=== PATIENT | male | born 1990 | race Caucasian/White ===

== ENCOUNTER 2017-07-30 18:49 | Inpatient (IN) | payer OTHER ==
--- NOTE | 2017-07-30 20:22 | PDOC ---
History of Present Illness - General Chief Complaint: Pain Stated Complaint: PAIN Time Seen by Provider: 07/30/17 19:54 History Source: Patient Exam Limitations: No Limitations - History of Present Illness Travel History: No Initial Comments: 07/30/17 20:21 This is a 27yo man without significant past medical history who presents to the emergency department with 1 day of right lower quadrant pain. 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 He immediately got up and started running after a few seconds of running he felt sudden onset pain in his right lower quadrant. The pain caused the patient to stop as physical activity. The pain has gotten slightly worse progressively over the past 24 hours. The patient initially thought this was indigestion and is tried [id number] medications with minimal relief. Patient denies any headaches, fever, chills, chest pain, shortness of breath, nausea, vomiting, diarrhea, hematochezia, or voiding difficulties. Patient states he has not had a bowel movement since yesterday morning and has usual bowel pattern of 2 bowel movements daily. Timing/Duration: reports: getting worse Abdominal Pain Onset Location: reports: RLQ Pain Radiation: reports: no radiation Activities at Onset: reports: exertion Aggravating Factors: improves with: None Alleviating Factors: improves with: None Past History - Past Medical History Allergies/Adverse Reactions: Allergies Allergy/AdvReac Type Severity Reaction Status Date / Time Penicillins Allergy Verified 07/30/17 19:40 Home Medications: Ambulatory Orders NK [No Known Home Medication] 07/30/17 - Suicide/Smoking/Psychosocial Hx Smoking History: Never smoked *Physical Exam - Vital Signs Last Vital Signs Temp Pulse Resp BP Pulse Ox 98.1 F 73 20 102/54 99 07/30/17 19:40 07/30/17 19:40 07/30/17 19:40 07/30/17 19:40 07/30/17 19:40 ED Treatment Course - LABORATORY CBC & Chemistry Diagram: 07/31/17 06:20 08/01/17 05:35 Medical Decision Making - Medical Decision Making 07/30/17 20:21 A/P: This is a 27yo man without significant past medical history who presents to the emergency department with 1 day of right lower quadrant pain. 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 He immediately got up and started running after a few seconds of running he felt sudden onset pain in his right lower quadrant. The pain caused the patient to stop as physical activity. The pain has gotten slightly worse progressively over the past 24 hours. The patient initially thought this was indigestion and is tried [id number] medications with minimal relief. Patient denies any headaches, fever, chills, chest pain, shortness of breath, nausea, vomiting, diarrhea, hematochezia, or voiding difficulties. Patient states he has not had a bowel movement since yesterday morning and has usual bowel pattern of 2 bowel movements daily. Patient is alert and oriented 3 in no apparent distress. Neck nontender and supple. Chest nontender respirations even and unlabored. Lungs clear to auscultation bilaterally. Regular rate and rhythm. S1 and S2 present with no murmurs rub or gallop. Abdomen with normoactive bowel sounds. Soft nondistended tender in the right lower quadrant. No rebound tenderness. Moves all extremities 4 with strength 5 out of 5 in all extremities. Pupils equally round reactive to light and accommodation. Cranial nerves II through XII intact. Zhao with steady gait no ataxia noted. Patient with appropriate mood and affect. Differential diagnoses include appendicitis, muscle strain, renal calculi I will obtain CBC, CMP, coagulation profile, type and screen, urinalysis. I will give patient 1 L of normal saline bolus. Patient currently refusing anything for pain management. I will obtain CT of the abdomen and pelvis with and without oral and IV contrast. 07/30/17 20:58 Patient requested medication for pain. Morphine 4 mg IV push given by me. *DC/Admit/Observation/Transfer Diagnosis at time of Disposition: Acute appendicitis Qualifiers: Acute appendicitis type: with localized peritonitis Qualified Code(s): K35.3 - Acute appendicitis with localized peritonitis - Discharge Dispostion Condition at time of disposition: Stable Admit: Yes
[2017-07-30] MEDS ORDERED: SODIUM CHLORIDE 1,000 ML IV STA (20:38)
[2017-07-30] MEDS ORDERED: morphine CARPU-JECT 4 MG/1 ML DISP.SYRIN IVPUSH ONE (20:38)
[2017-07-30 20:41] LABS: MCH 29.1 pg (25.7-33.7); MCHC 33.8 g/dl (32.0-35.9); MEAN CELL VOLUME 86.3 fl (80-96); MEAN PLT VOLUME 10.5 fl (7.5-11.1); PLATELET COUNT 120 K/MM3 (134-434); RDW 13.6 % (11.9-15.9)
[2017-07-30 20:42] LABS: URINE APPEARANCE CLOUDY; URINE BILIRUBIN NEGATIVE (NEGATIVE); URINE BLOOD NEGATIVE (NEGATIVE); URINE COLOR YELLOW; URINE GLUCOSE (UA) NEGATIVE (NEGATIVE); URINE KETONE NEGATIVE (NEGATIVE); URINE NITRITE NEGATIVE (NEGATIVE); URINE PROTEIN NEGATIVE (NEGATIVE)
[2017-07-30] MEDS ORDERED: morphine CARPU-JECT 10 MG/1 ML DISP.SYRIN ONE (20:51)
[2017-07-30 20:54] LABS: INR 1.03 (0.82-1.09); PROTHROMBIN TIME (PATIENT) 11.6 SEC (9.98-11.88)
[2017-07-30 21:04] LABS: ALBUMIN 3.8 g/dl (3.4-5.0); ANION GAP 5 (8-16); CALCIUM 8.6 mg/dL (8.5-10.1); CO2 31 mmol/L (21-32); CREATININE 1.1 mg/dL (0.7-1.3); GLUCOSE,RANDOM 92 mg/dL (74-106); SGOT/AST 20 U/L (15-37); SGPT/ALT 24 U/L (12-78)
[2017-07-30 21:06] LABS: ALK PHOS 92 U/L (45-117); TOT PROT 7.3 g/dl (6.4-8.2)
[2017-07-30 21:25] LABS: PLATELET COMMENT2 NO CLOTTING DETECTED; PLATELET COMMENT3 FEW GIANT PLTS; PLATELET ESTIMATE SLT DECREASED (NORMAL); TOTAL CELLS COUNTED 100
[2017-07-30 21:26] LABS: REACTIVE LYMPHOCYTES 3 % (0-80); SMUDGE CELLS FEW
--- NOTE | 2017-07-30 22:34 | PDOC ---
*Physical Exam - Vital Signs Last Vital Signs Temp Pulse Resp BP Pulse Ox 98.1 F 73 20 102/54 99 07/30/17 19:40 07/30/17 19:40 07/30/17 19:40 07/30/17 19:40 07/30/17 19:40 - Physical Exam General Appearance: Yes: Nourished, Appropriately Dressed, Moderate Distress ( holding RLQ) Gastrointestinal/Abdominal: positive: Normal Bowel Sounds, Tender (RLQ, (+) rovsing), Flat, Soft, Rebound ((+) RLQ). negative: Distended, Guarding Integumentary: positive: Normal Color, Dry, Warm Neurologic: positive: computer patternmaker II-XII NML intact, Fully Oriented, Alert, Normal Mood/ Affect, Normal Response, Motor Strength 02/04 ED Treatment Course - LABORATORY CBC & Chemistry Diagram: 07/30/17 20:30 07/30/17 20:30 - ADDITIONAL ORDERS Additional order review: Laboratory Results 07/30/17 07/30/17 07/30/17 20:30 20:30 20:30 PT with INR INR Sodium 140 Potassium 3.7 Chloride 104 Carbon Dioxide 31 Anion Gap 5 L BUN 12 Creatinine 1.1 Creat Clearance w eGFR > 60 Random Glucose 92 Calcium 8.6 Total Bilirubin 1.0 AST 20 ALT 24 Alkaline Phosphatase 92 Total Protein 7.3 Albumin 3.8 Urine Color Yellow Urine Appearance Cloudy Urine pH 7.0 Urine Protein Negative Urine Glucose (UA) Negative Urine Ketones Negative Urine Blood Negative Urine Nitrite Negative Urine Bilirubin Negative Urine Urobilinogen 2.0 Blood Type O POSITIVE Antibody Screen Negative 07/30/17 20:30 PT with INR 11.60 INR 1.03 Sodium Potassium Chloride Carbon Dioxide Anion Gap BUN Creatinine Creat Clearance w eGFR Random Glucose Calcium Total Bilirubin AST ALT Alkaline Phosphatase Total Protein Albumin Urine Color Urine Appearance Urine pH Urine Protein Urine Glucose (UA) Urine Ketones Urine Blood Urine Nitrite Urine Bilirubin Urine Urobilinogen Blood Type Antibody Screen 07/30/17 20:30 RBC 4.00 MCV 86.3 MCHC 33.8 RDW 13.6 MPV 10.5 Neutrophils % No Result Required. Lymphocytes % No Result Required. - Medications Given in the ED: ED Medications Discontinued Medications Generic Name Dose Route Start Last Admin Trade Name Freq PRN Reason Stop Dose Admin Sodium Chloride 1,000 mls @ 1,000 mls/hr 07/30/17 20:38 07/30/17 20:41 Normal Saline - IV 07/30/17 21:37 1,000 mls/hr ASDIR STA Administration Morphine Sulfate 4 mg 07/30/17 20:38 07/30/17 21:05 Morphine Injection - IVPUSH 07/30/17 20:39 4 mg ONCE ONE Administration Medical Decision Making - Medical Decision Making 07/30/17 22:33 Received sign out from SONIDO Cisse. Pt. presents with one day of RLQ pain. No relieving factors. Denies fevers chills, n/v/d. Pt. is currently ordered for CT scan to r/o appy. No leukocytosis; other labs reviewed. 07/31/17 01:11 CT shows appendicitis. Explained results to pt. Will page Dr. Veloz at this time. IV Zosyn, IVF, Morphine for pain 07/31/17 01:[address] Domingo, [facility]. Will admit pt. to med/surg and f/u with Dr. Veloz *DC/Admit/Observation/Transfer Diagnosis at time of Disposition: Acute appendicitis Qualifiers: Acute appendicitis type: with localized peritonitis Qualified Code(s): K35.3 - Acute appendicitis with localized peritonitis - Discharge Dispostion Condition at time of disposition: Stable Admit: Yes
[2017-07-30 23:20] LABS: URINE LEUK ESTERASE Negative (NEGATIVE)
--- NOTE | 2017-07-31 01:09 | PDOC ---
*Physical Exam - Vital Signs Last Vital Signs Temp Pulse Resp BP Pulse Ox 98.1 F 73 20 102/54 99 07/30/17 19:40 07/30/17 19:40 07/30/17 19:40 07/30/17 19:40 07/30/17 19:40 ED Treatment Course - LABORATORY CBC & Chemistry Diagram: 07/30/17 20:30 07/30/17 20:30 - ADDITIONAL ORDERS Additional order review: Laboratory Results 07/30/17 07/30/17 07/30/17 20:30 20:30 20:30 PT with INR INR Sodium 140 Potassium 3.7 Chloride 104 Carbon Dioxide 31 Anion Gap 5 L BUN 12 Creatinine 1.1 Creat Clearance w eGFR > 60 Random Glucose 92 Calcium 8.6 Total Bilirubin 1.0 AST 20 ALT 24 Alkaline Phosphatase 92 Total Protein 7.3 Albumin 3.8 Urine Color Yellow Urine Appearance Cloudy Urine pH 7.0 Ur Specific Harvest 1.015 Urine Protein Negative Urine Glucose (UA) Negative Urine Ketones Negative Urine Blood Negative Urine Nitrite Negative Urine Bilirubin Negative Urine Urobilinogen 2.0 Ur Leukocyte Esterase Negative Blood Type O POSITIVE Antibody Screen Negative 07/30/17 20:30 PT with INR 11.60 INR 1.03 Sodium Potassium Chloride Carbon Dioxide Anion Gap BUN Creatinine Creat Clearance w eGFR Random Glucose Calcium Total Bilirubin AST ALT Alkaline Phosphatase Total Protein Albumin Urine Color Urine Appearance Urine pH Ur Specific Harvest Urine Protein Urine Glucose (UA) Urine Ketones Urine Blood Urine Nitrite Urine Bilirubin Urine Urobilinogen Ur Leukocyte Esterase Blood Type Antibody Screen 07/30/17 20:30 RBC 4.00 MCV 86.3 MCHC 33.8 RDW 13.6 MPV 10.5 Neutrophils % No Result Required. Lymphocytes % No Result Required. - Medications Given in the ED: ED Medications Discontinued Medications Generic Name Dose Route Start Last Admin Trade Name Freq PRN Reason Stop Dose Admin Sodium Chloride 1,000 mls @ 1,000 mls/hr 07/30/17 20:38 07/30/17 20:41 Normal Saline - IV 07/30/17 21:37 1,000 mls/hr ASDIR STA Administration Morphine Sulfate 4 mg 07/30/17 20:38 07/30/17 21:05 Morphine Injection - IVPUSH 07/30/17 20:39 4 mg ONCE ONE Administration Medical Decision Making - Medical Decision Making 10/29/17 01:09 Pt seen by the Advanced Practice Provider under my direct supervision Pt interviewed and examined Ancillary studies reviewed I agree with plan as outlined by the Advanced Practice Provider ANTONIO Varghese CT scan of the abdomen and pelvis demonstrates acute appendicitis without perforation or abscess. IV antibiotics and surgery consult and admission to the hospital
[2017-07-31] MEDS ORDERED: LEVOFLOXACIN 750 MG IVPB 150 ML IVPB ONE ×2 (01:12→01:19)
[2017-07-31] MEDS ORDERED: METRONIDAZOLE 500 MG PREMIXED 100 ML IVPB ONE ×3 (01:15→11:11)
[2017-07-31] MEDS ORDERED: SODIUM CHLORIDE 1,000 ML IV STA (01:15)
[2017-07-31] MEDS ORDERED: morphine CARPU-JECT 4 MG/1 ML DISP.SYRIN IVPUSH ONE (01:15)
[2017-07-31] MEDS ORDERED: morphine CARPU-JECT 8 MG/1 ML DISP.SYRIN ONE (01:21)
[2017-07-31] MEDS ORDERED: morphine CARPU-JECT 2 MG/1 ML DISP.SYRIN IVPUSH PRN (01:47)
--- NOTE | 2017-07-31 01:55 | HP ---
CHIEF COMPLAINT:Abdominal pain. PCP: none HISTORY OF PRESENT ILLNESS: 27 yo man no significant PMHX who presents to the ED with 1 day history of right lower quadrant pain. 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 Initially thought it was indigestion or muscle strain and tried otc pain meds with minimal relief. Describes 05/12 constant stabbing non-radiating RLQ. No alleviating factors. Aggravated by movement and palpation. No associated fever, chills, nausea or vomiting. No recent illness. Denies CP,MIKE,SOB, palpitations, N /V. ER course was notable for: (1)CT abdomen shows acute appendicitis. (2)NPO , IVF, Levaquin/Flagyl x1 (3)Surgery consult - Dr. Veloz Recent Travel:Denies PAST MEDICAL HISTORY:none PAST SURGICAL HISTORY:none Social History: Smoking:never Alcohol:denies Drugs: denies Family History: Allergies Penicillins Allergy (Verified 07/30/17 19:40) HOME MEDICATIONS: Home Medications Medication Instructions Recorded NK [No Known Home Medication] 07/30/17 REVIEW OF SYSTEMS CONSTITUTIONAL: Absent: fever, chills, diaphoresis, generalized weakness, malaise, loss of appetite, weight change HEENT: Absent: rhinorrhea, nasal congestion, throat pain, throat swelling, difficulty swallowing, mouth swelling, ear pain, eye pain, visual changes CARDIOVASCULAR: Absent: chest pain, syncope, palpitations, irregular heart rate, lightheadedness , peripheral edema RESPIRATORY: Absent: cough, shortness of breath, dyspnea with exertion, orthopnea, wheezing, stridor, hemoptysis GASTROINTESTINAL:abdominal pain, abdominal distension Absent: , nausea, vomiting, diarrhea, constipation, melena, hematochezia GENITOURINARY: Absent: dysuria, frequency, urgency, hesitancy, hematuria, flank pain, genital pain MUSCULOSKELETAL: Absent: myalgia, arthralgia, joint swelling, back pain, neck pain SKIN: Absent: rash, itching, pallor HEMATOLOGIC/IMMUNOLOGIC: Absent: easy bleeding, easy bruising, lymphadenopathy, frequent infections ENDOCRINE: Absent: unexplained weight gain, unexplained weight loss, heat intolerance, cold intolerance NEUROLOGIC: Absent: headache, focal weakness or paresthesias, dizziness, unsteady gait, seizure, mental status changes, bladder or bowel incontinence PSYCHIATRIC: Absent: anxiety, depression, suicidal or homicidal ideation, hallucinations. PHYSICAL EXAMINATION Vital Signs - 24 hr 07/30/17 19:40 Temperature 98.1 F Pulse Rate 73 Respiratory 20 Rate Blood Pressure 102/54 O2 Sat by Pulse 99 Oximetry (%) GENERAL: AAOx3, NAD HEAD: NC/AT. EYES: PERRLA,EOMI, sclera anicteric, conjunctiva clear. No lid lag. EARS, NOSE, THROAT: Moist mucous membranes. NECK: Supple , No lymphadenopathy, JVD, or masses. LUNGS: CTAB. No wheezes, and no crackles. No accessory muscle use. HEART: RRR, normal S1 and S2 , No M/G/R ABDOMEN: Soft, RLQ TTP , not distended, normoactive bowel sounds, no guarding,(+ )rebound, no masses. MUSCULOSKELETAL: Normal range of motion at all joints. No bony deformities or tenderness. No CVA tenderness. UPPER EXTREMITIES: 2+ pulses, warm, well-perfused. No cyanosis. No clubbing. No peripheral edema. LOWER EXTREMITIES: 2+ pulses, warm, well-perfused. No calf tenderness. No peripheral edema. NEUROLOGICAL: Cranial nerves II-XII intact. Normal speech. Normal gait. PSYCHIATRIC: Cooperative. Good eye contact. Appropriate mood and affect. SKIN: Warm, dry, normal turgor, no rashes or lesions noted, normal capillary refill. Laboratory Results - last 24 hr 07/30/17 07/30/17 07/30/17 20:30 20:30 20:30 WBC 4.0 RBC 4.00 Hgb 11.7 Hct 34.5 L MCV 86.3 MCH 29.1 MCHC 33.8 RDW 13.6 Plt Count 120 L MPV 10.5 Total Counted 100 Neutrophils % No Result Required. Neutrophils % (Manual) 48 Band Neuts % (Manual) 2 Lymphocytes % No Result Required. Lymphocytes % (Manual) 30 Monocytes % (Manual) 16 H* Eosinophils % (Manual) 1 Smudge Cells Few Platelet Estimate Slt decreased Platelet Comment No clotting detected PT with INR 11.60 INR 1.03 Sodium Potassium Chloride Carbon Dioxide Anion Gap BUN Creatinine Creat Clearance w eGFR Random Glucose Calcium Total Bilirubin AST ALT Alkaline Phosphatase Total Protein Albumin Urine Color Yellow Urine Appearance Cloudy Urine pH 7.0 Ur Specific Arnold 1.015 Urine Protein Negative Urine Glucose (UA) Negative Urine Ketones Negative Urine Blood Negative Urine Nitrite Negative Urine Bilirubin Negative Urine Urobilinogen 2.0 Ur Leukocyte Esterase Negative Blood Type Antibody Screen 07/30/17 07/30/17 20:30 20:30 WBC RBC Hgb Hct MCV MCH MCHC RDW Plt Count MPV Total Counted Neutrophils % Neutrophils % (Manual) Band Neuts % (Manual) Lymphocytes % Lymphocytes % (Manual) Monocytes % (Manual) Eosinophils % (Manual) Smudge Cells Platelet Estimate Platelet Comment PT with INR INR Sodium 140 Potassium 3.7 Chloride 104 Carbon Dioxide 31 Anion Gap 5 L BUN 12 Creatinine 1.1 Creat Clearance w eGFR > 60 Random Glucose 92 Calcium 8.6 Total Bilirubin 1.0 AST 20 ALT 24 Alkaline Phosphatase 92 Total Protein 7.3 Albumin 3.8 Urine Color Urine Appearance Urine pH Ur Specific Arnold Urine Protein Urine Glucose (UA) Urine Ketones Urine Blood Urine Nitrite Urine Bilirubin Urine Urobilinogen Ur Leukocyte Esterase Blood Type O POSITIVE Antibody Screen Negative ASSESSMENT/PLAN: 27 yo man no significant past medical history who presents to the emergency department with 1 day of right lower quadrant pain will be admitted to med/surg for acute appendicitis. Problem List - Problem (1) Acute appendicitis Assessment/Plan: * CT shows acute appendicitis. * Surgery consult - Dr. Veloz * NPO * IVF with NS @100ml/hr * Pain control morphine 2mg IV q4h * Levaquin and Flagyl given in ED. * Repeat labs in AM * blood cultures pending. * Coags sent. (2) DVT prophylaxis Assessment/Plan: * Heparin 5000U SQ TID Visit type - Emergency Visit Emergency Visit: Yes ED Registration Date: 07/31/17 Care time: The patient presented to the Emergency Department on the above date and was hospitalized for further evaluation of their emergent condition. - New Patient This patient is new to me today: Yes Date on this admission: 07/31/17 - Critical Care Critical Care patient: No
[2017-07-31] MEDS ORDERED: SODIUM CHLORIDE 1,000 ML IV SCH ×2 (02:00→18:00)
[2017-07-31 03:26] VITALS: BMI 24.5
--- NOTE | 2017-07-31 03:33 | PN ---
Teaching Attending Note Name of Resident: Ramses Domingo ATTENDING PHYSICIAN STATEMENT I saw and evaluated the patient. I reviewed the resident's note and discussed the case with the resident. I agree with the resident's findings and plan as documented. SUBJECTIVE: 27yo male previously healthy c/o RLQ abdominal pain which started on 07/30 at around 8pm. Pain started suddenly, caused him to cease his physical activity. He was brought to ER and CT of abdomen showed that he had acute appendicitis. There was no free air in abdominal cavity. OBJECTIVE: Last Vital Signs Temp Pulse Resp BP Pulse Ox 97.7 F 64 16 109/70 98 07/31/17 02:41 07/31/17 02:41 07/31/17 02:41 07/31/17 02:41 07/31/17 02:41 general- well built, NAD HEENT- at, nc Neck - supple cv- s1+s2+ RRR Chest -CTA b/l abdomen- mild tenderness in RLQ ext- no pedal edema skin- no rashes appreciated CT of abdomen - acute appendicitis, no free air in abdominal cavity Abnormal Lab Results 07/30/17 07/30/17 20:30 20:30 Hct 34.5 L Plt Count 120 L Monocytes % (Manual) 16 H* Anion Gap 5 L ASSESSMENT AND PLAN: #acute appendicitis -Dr. Veloz of surgery was paged -surgery consult -blood cultures x2 -levofloxacin -metronidazole -NPO -IV fluids -pain management - morphine IV PRN #DVT ppx -heparin sc
[2017-07-31] MEDS ORDERED: HEPARIN NA (PORCINE) 5,000 UNITS/ML 1ML VIAL SQ SCH (06:00)
[2017-07-31 08:55] LABS: MCH 29.3 pg (25.7-33.7); MCHC 34.2 g/dl (32.0-35.9); MEAN CELL VOLUME 85.7 fl (80-96); PLATELET COUNT 105 K/MM3 (134-434); RDW 13.5 % (11.9-15.9); WHITE BLOOD COUNT 2.9 K/mm3 (4.0-10.0)
[2017-07-31 09:07] LABS: ALBUMIN 3.3 g/dl (3.4-5.0); ALK PHOS 76 U/L (45-117); ANION GAP 9 (8-16); BILIRUBIN,TOTAL 0.7 mg/dL (0.2-1.0); CALCIUM 7.9 mg/dL (8.5-10.1); CO2 25 mmol/L (21-32); CREATININE 0.8 mg/dL (0.7-1.3); GLUCOSE,RANDOM 73 mg/dL (74-106); SGOT/AST 16 U/L (15-37); SGPT/ALT 20 U/L (12-78); TOT PROT 6.2 g/dl (6.4-8.2)
--- NOTE | 2017-07-31 09:13 | CONSULT ---
- Consultation REQUESTING PROVIDER: Betito HEAD CONSULT REQUEST: We have been asked to surgically evaluate this patient for ( specify). PCP:Charles Carmona MD HISTORY OF PRESENT ILLNESS: MARCIN who is an o/w healthy male who presented to the [facility] ER w/sudden onset RLQ abdominal pain after eating w/ associated n/v; he never had this before; he has no other c/o; pain started 12-24 hours ago; he denies any other GI/ c/o; pain is sharp in RLQ; worse w/ moving around; less w / lying still; no radiation and it is constant; w/u done in the ER is c/w acute appendicitis. 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 PMHx: ? CVA ? when 3 PSHx: none Home Medications Medication Instructions Recorded NK [No Known Home Medication] 07/30/17 Allergies Allergy/AdvReac Type Severity Reaction Status Date / Time Penicillins Allergy Verified 07/30/17 19:40 REVIEW OF SYSTEMS: CONSTITUTIONAL: Absent: fever, chills, diaphoresis, generalized weakness, malaise, loss of appetite, weight change CARDIOVASCULAR: Absent: chest pain, syncope, palpitations, irregular heart rate, lightheadedness , peripheral edema RESPIRATORY: Absent: cough, shortness of breath, dyspnea with exertion, wheezing, stridor, hemoptysis GASTROINTESTINAL: Absent: abdominal pain, abdominal distension, nausea, vomiting, diarrhea, constipation, melena, hematochezia GENITOURINARY: Absent: dysuria, frequency, urgency, hesitancy, hematuria, flank pain, genital pain MUSCULOSKELETAL: Absent: myalgia, arthralgia, joint swelling, back pain, neck pain SKIN: Absent: rash, itching, pallor HEMATOLOGIC/IMMUNOLOGIC: Absent: easy bleeding, easy bruising, lymphadenopathy NEUROLOGIC: As above only. PSYCHIATRIC: Absent: anxiety, depression, suicidal or homicidal ideation, hallucinations. PHYSICAL EXAM: GENERAL: Awake, alert, and fully oriented, in no acute distress. HEAD: Normal with no signs of trauma. EYES: PERRL, sclera anicteric, conjunctiva clear. NECK: Normal ROM, supple without lymphadenopathy, JVD, or masses. ABDOMEN: Soft, tender RLQ w/guarding and ttp over [place] point, not distended , normoactive bowel sounds, voluntary guarding, positive rebound localized to RLQ no masses. No organomegaly. No hernias; Rovsings;psoas and obturator signs are present. MUSCULOSKELETAL: Normal ROM at all joints. No bony deformities or tenderness. No CVA tenderness. UPPER EXTREMITIES: 2+ pulses, warm, well-perfused. No cyanosis. Cap refill <2 seconds. No peripheral edema. LOWER EXTREMITIES: 2+ pulses, warm, well-perfused. No calf tenderness. No peripheral edema. NEUROLOGICAL: Normal speech, gait not observed. PSYCH: Cooperative. Good eye contact. Appropriate mood and affect. SKIN: Warm, dry, normal turgor, no rashes or lesions noted. Vital Signs Temperature 97.7 F 07/31/17 02:41 Pulse Rate 64 07/31/17 02:41 Respiratory Rate 16 07/31/17 02:41 Blood Pressure 109/70 07/31/17 02:41 O2 Sat by Pulse Oximetry (%) 98 07/31/17 02:41 Lab Results WBC 2.9 K/mm3 (4.0-10.0) L 07/31/17 06:20 RBC 3.45 M/mm3 (4.00-5.60) L 07/31/17 06:20 Hgb 10.1 GM/dL (11.7-16.9) L D 07/31/17 06:20 Hct 29.5 % (35.4-49) L 07/31/17 06:20 MCV 85.7 fl (80-96) 07/31/17 06:20 MCHC 34.2 g/dl (32.0-35.9) 07/31/17 06:20 RDW 13.5 % (11.9-15.9) 07/31/17 06:20 Plt Count 105 K/MM3 (134-434) L 07/31/17 06:20 Sodium 140 mmol/L (136-145) 07/30/17 20:30 Potassium 3.7 mmol/L (3.5-5.1) 07/30/17 20:30 Chloride 104 mmol/L (98-107) 07/30/17 20:30 Carbon Dioxide 31 mmol/L (21-32) 07/30/17 20:30 Anion Gap 5 (8-16) L 07/30/17 20:30 BUN 12 mg/dL (7-18) 07/30/17 20:30 Creatinine 1.1 mg/dL (0.7-1.3) 07/30/17 20:30 Random Glucose 92 mg/dL (74-106) 07/30/17 20:30 Calcium 8.6 mg/dL (8.5-10.1) 07/30/17 20:30 Blood Type O POSITIVE 07/30/17 20:30 Antibody Screen Negative 07/30/17 20:30 INR 1.03 (0.82-1.09) 07/30/17 20:30 CT a/p reviewed IMP: acute appendicitis PLAN: Laparoscopic possible open appendectomy; r/b/t/a's d/w the patient; informed consent obtained for surgery. Cesar Veloz MD FACS Visit type - Case Type Case Type: ED Admission - Emergency Emergency Visit: Yes ED Registration Date: 07/31/17 Care time: The patient presented to the Emergency Department on the above date and was hospitalized for further evaluation of their emergent condition. - New patient This patient is new to me today: Yes Date on this admission: 07/31/17 - Critical Care Critical Care patient: No
[2017-07-31] MEDS ORDERED: BUPIVACAINE HCL/PF 0.5% (5MG/ML) 10 ML VIAL ONE (09:58)
[2017-07-31] MEDS ORDERED: PROPOFOL 20 ML ONE (11:13)
[2017-07-31] MEDS ORDERED: MIDAZOLAM HCL 2 MG/2 ML SINGLE DOSE VIAL ONE (11:13)
[2017-07-31] MEDS ORDERED: ROCURONIUM BROMIDE 50 MG/5 ML VIAL ONE (11:13)
[2017-07-31] MEDS ORDERED: DEXAMETHASONE SOD PHOSPHATE 4 MG/1 ML VIAL ONE (11:31)
[2017-07-31] MEDS ORDERED: ONDANSETRON 4 MG/2 ML VIAL ONE (11:31)
[2017-07-31 11:39] LABS: PLATELET ESTIMATE SLT DECREASED (NORMAL); TOTAL CELLS COUNTED 100
[2017-07-31] MEDS ORDERED: GLYCOPYRROLATE 0.2 MG/1 ML VIAL ONE (12:00)
[2017-07-31] MEDS ORDERED: NEOSTIGMINE METHYLSULFATE 0.5 MG/ML - 10 ML MDV ONE (12:00)
[2017-07-31] MEDS ORDERED: BUPIVACAINE HCL/PF 0.5% (5MG/ML) 10 ML VIAL IJ ONE ×2 (12:08)
[2017-07-31] MEDS ORDERED: KETOROLAC TROMETHAMINE 30 MG/1 ML VIAL ONE (12:11)
[2017-07-31] MEDS ORDERED: ONDANSETRON 4 MG/2 ML VIAL IVPUSH PRN ×2 (12:24→12:34)
[2017-07-31] MEDS ORDERED: PROMETHAZINE HCL 25 MG/1 ML VIAL IVPUSH PRN (12:24)
--- NOTE | 2017-07-31 12:24 | OP ---
Operative Note - Note: Operative Date: 07/31/17 Pre-Operative Diagnosis: acute appendicitis Operation: laparoscopic appendecotmy Surgeon: Cesar Veloz [facility] Staff: Cinthia Quiroga Anesthesiologist/HURL SHAKER: Jason Pagan Anesthesia: General Specimens Removed: appendix Estimated Blood Loss (mls): 10 Fluid Volume Replaced (mls): 600 Operative Report Dictated: Yes
--- NOTE | 2017-07-31 12:26 | SURG ---
Surgery Underwear Trimmer Note Underwear Trimmer: Cinthia Quiroga PA-C Date of Service: 07/31/17 Diagnosis: acute appendicitis Procedure: laparoscopic appendectomy I was present for the entirety of the operative procedure. For further detail, please refer to operative report. Visit type - Case Type Case Type: ED Admission - Emergency Emergency Visit: Yes ED Registration Date: 07/31/17 Care time: The patient presented to the Emergency Department on the above date and was hospitalized for further evaluation of their emergent condition. - New patient This patient is new to me today: Yes Date on this admission: 07/31/17 - Critical Care Critical Care patient: No
[2017-07-31] MEDS ORDERED: KETOROLAC TROMETHAMINE 30 MG/1 ML VIAL IVPUSH PRN (12:28)
[2017-07-31] MEDS ORDERED: oxyCODONE HCL 5 MG TABLET PO PRN ×2 (12:29→12:30)
[2017-07-31] MEDS ORDERED: ACETAMINOPHEN 325 MG TABLET (FP) PO PRN (12:29)
[2017-07-31] MEDS ORDERED: LACTATED RINGERS SOLUTION 1,000 ML IV SCH ×2 (12:30→12:34)
[2017-07-31] MEDS ORDERED: morphine CARPU-JECT 8 MG/1 ML DISP.SYRIN IVPUSH PRN (12:34)
[2017-07-31] MEDS: HEPARIN NA (PORCINE) 5,000 UNITS/ML 1ML VIAL SQ SCH ×2 (15:28→21:27)
[2017-07-31] MEDS ORDERED: SODIUM CHLORIDE 2,000 ML IV STA (17:54)
--- NOTE | 2017-07-31 18:02 | PN ---
Teaching Attending Note Name of Resident: Charles Carmona ATTENDING PHYSICIAN STATEMENT SUBJECTIVE: patient seen and examined in medical bed, post operatively. Attempting to go to bathroom, suprapubic discomfort, attributes to wanting to urinate. Abdominal pain better, no nausea, vomiting or other complaints. OBJECTIVE: Vital Signs Period Temp Pulse Resp BP Sys/Colon Pulse Ox Last 24 Hr 97.7 F-98.9 F 53-73 16-20 84-119/35-70 98-100 Intake & Output 07/28/17 07/29/17 07/30/17 07/31/17 23:59 23:59 23:59 23:59 Intake Total 1300 Output Total 10 Balance 1290 Weight 170 lb 3.2 oz 161 lb 1.6 oz General: sitting in bed, no acute distress, uncomfortable from suprapubic fullness and wanting to urinate CVS S1S2 RRR chest CTAB, no rales or wheezing abdomen, soft, no swelling/bleed from laparoscopic sites, unable to hear bowel sounds, suprapubic tenderness and fullness Extremities no edema Current Medications Acetaminophen (Tylenol -) 650 mg PO Q6H PRN PRN Reason: FEVER OR PAIN Heparin Sodium (Porcine) (Heparin -) 5,000 unit SQ TID [facility] Last Admin: 07/31/17 15:28 Dose: 5,000 unit Lactated Ringer's (Lactated Ringers Solution) 1,000 mls @ 125 mls/hr IV ASDIR [facility] Last Admin: 07/31/17 15:12 Dose: Not Given Sodium Chloride (Normal Saline -) 2,000 mls @ 1,000 mls/hr IV ASDIR STA Stop: 07/31/17 19:53 Sodium Chloride (Normal Saline -) 1,000 mls @ 100 mls/hr IV ASDIR [facility] Ketorolac Tromethamine (Toradol Injection -) 30 mg IVPUSH Q8H-IV PRN PRN Reason: PAIN Stop: 08/05/17 12:27 Morphine Sulfate (Morphine Sulfate) 2 mg IVPUSH Q4H PRN PRN Reason: PAIN Last Admin: 07/31/17 15:35 Dose: 2 mg Ondansetron HCl (Zofran Injection) 4 mg IVPUSH Q6H PRN PRN Reason: NAUSEA AND/OR VOMITING Stop: 07/31/17 18:25 Oxycodone HCl (Roxicodone -) 5 mg PO Q6H PRN PRN Reason: PAIN LEVEL 1-5 Oxycodone HCl (Roxicodone -) 10 mg PO Q6H PRN PRN Reason: PAIN LEVEL 6-10 Laboratory Results - last 24 hr 07/30/17 07/30/17 07/30/17 20:30 20:30 20:30 WBC 4.0 RBC 4.00 Hgb 11.7 Hct 34.5 L MCV 86.3 MCH 29.1 MCHC 33.8 RDW 13.6 Plt Count 120 L MPV 10.5 Total Counted 100 Neutrophils % No Result Required. Neutrophils % (Manual) 48 Band Neuts % (Manual) 2 Lymphocytes % No Result Required. Lymphocytes % (Manual) 30 Monocytes % (Manual) 16 H* Eosinophils % (Manual) 1 Smudge Cells Few Platelet Estimate Slt decreased Platelet Comment No clotting detected PT with INR 11.60 INR 1.03 Sodium Potassium Chloride Carbon Dioxide Anion Gap BUN Creatinine Creat Clearance w eGFR Random Glucose Calcium Total Bilirubin AST ALT Alkaline Phosphatase Total Protein Albumin Urine Color Yellow Urine Appearance Cloudy Urine pH 7.0 Ur Specific Shannon 1.015 Urine Protein Negative Urine Glucose (UA) Negative Urine Ketones Negative Urine Blood Negative Urine Nitrite Negative Urine Bilirubin Negative Urine Urobilinogen 2.0 Ur Leukocyte Esterase Negative Blood Type Antibody Screen 07/30/17 07/30/17 07/31/17 20:30 20:30 06:20 WBC 2.9 L RBC 3.45 L Hgb 10.1 L D Hct 29.5 L MCV 85.7 MCH 29.3 MCHC 34.2 RDW 13.5 Plt Count 105 L MPV 11.0 Total Counted 100 Neutrophils % No Result Required. Neutrophils % (Manual) 40 L Band Neuts % (Manual) 1 D Lymphocytes % No Result Required. Lymphocytes % (Manual) 35 Monocytes % (Manual) 22 H* Eosinophils % (Manual) 2 D Smudge Cells Platelet Estimate Slt decreased Platelet Comment PT with INR INR Sodium 140 Potassium 3.7 Chloride 104 Carbon Dioxide 31 Anion Gap 5 L BUN 12 Creatinine 1.1 Creat Clearance w eGFR > 60 Random Glucose 92 Calcium 8.6 Total Bilirubin 1.0 AST 20 ALT 24 Alkaline Phosphatase 92 Total Protein 7.3 Albumin 3.8 Urine Color Urine Appearance Urine pH Ur Specific Shannon Urine Protein Urine Glucose (UA) Urine Ketones Urine Blood Urine Nitrite Urine Bilirubin Urine Urobilinogen Ur Leukocyte Esterase Blood Type O POSITIVE Antibody Screen Negative 07/31/17 08:40 WBC RBC Hgb Hct MCV MCH MCHC RDW Plt Count MPV Total Counted Neutrophils % Neutrophils % (Manual) Band Neuts % (Manual) Lymphocytes % Lymphocytes % (Manual) Monocytes % (Manual) Eosinophils % (Manual) Smudge Cells Platelet Estimate Platelet Comment PT with INR INR Sodium 140 Potassium 3.9 Chloride 106 Carbon Dioxide 25 Anion Gap 9 BUN 8 D Creatinine 0.8 D Creat Clearance w eGFR > 60 Random Glucose 73 L D Calcium 7.9 L Total Bilirubin 0.7 D AST 16 ALT 20 Alkaline Phosphatase 76 Total Protein 6.2 L Albumin 3.3 L Urine Color Urine Appearance Urine pH Ur Specific Shannon Urine Protein Urine Glucose (UA) Urine Ketones Urine Blood Urine Nitrite Urine Bilirubin Urine Urobilinogen Ur Leukocyte Esterase Blood Type Antibody Screen CT A/P reviewed ASSESSMENT AND PLAN: 27 yom with uncomplicated Acute appendicits s/p laparoscopic appendectomy -Acute appendicitis s/p laparoscopic appendectomy -Post operative hypotension Plan: Aggressive hydration, vitals q4h, diet/pain control per surgery. Anticipate d/c in 24-48 hours if improving with no new concerns.
[2017-08-01] MEDS: HEPARIN NA (PORCINE) 5,000 UNITS/ML 1ML VIAL SQ SCH (05:59)
[2017-08-01 06:50] LABS: MCH 29.4 pg (25.7-33.7); MEAN CELL VOLUME 86.3 fl (80-96); MEAN PLT VOLUME 11.5 fl (7.5-11.1); PLATELET COUNT 106 K/MM3 (134-434); RDW 13.4 % (11.9-15.9)
[2017-08-01 06:55] LABS: ALBUMIN 2.8 g/dl (3.4-5.0); ANION GAP 8 (8-16); CALCIUM 7.8 mg/dL (8.5-10.1); CO2 23 mmol/L (21-32); CREATININE 0.9 mg/dL (0.7-1.3); GLUCOSE,RANDOM 103 mg/dL (74-106); PHOSPHOROUS 3.5 mg/dL (2.5-4.9); SGOT/AST 14 U/L (15-37); SGPT/ALT 18 U/L (12-78)
[2017-08-01 06:57] LABS: ALK PHOS 68 U/L (45-117); BILIRUBIN,TOTAL 0.6 mg/dL (0.2-1.0); TOT PROT 5.7 g/dl (6.4-8.2)
--- NOTE | 2017-08-01 08:05 | PN ---
Physical Exam: SUBJECTIVE: Patient seen and examined OBJECTIVE: Vital Signs Period Temp Pulse Resp BP Sys/Colon Pulse Ox Last 24 Hr 97.6 F-98.9 F 53-77 16-20 84-117/35-57 98-100 GENERAL: The patient is awake, alert, and fully oriented, in no acute distress. HEAD: Normal with no signs of trauma. EYES: PERRL, extraocular movements intact, sclera anicteric, conjunctiva clear. No ptosis. ENT: Ears normal, nares patent, oropharynx clear without exudates, moist mucous membranes. NECK: Trachea midline, full range of motion, supple. LUNGS: Breath sounds equal, clear to auscultation bilaterally, no wheezes, no crackles, no accessory muscle use. HEART: Regular rate and rhythm, S1, S2 without murmur, rub or gallop. ABDOMEN: Soft, nontender, nondistended, normoactive bowel sounds, no guarding, no rebound, no hepatosplenomegaly, no masses. EXTREMITIES: 2+ pulses, warm, well-perfused, no edema. NEUROLOGICAL: Cranial nerves II through XII grossly intact. Normal speech, gait not observed. PSYCH: Normal mood, normal affect. SKIN: Warm, dry, normal turgor, no rashes or lesions noted Laboratory Results - last 24 hr 07/31/17 07/31/17 08/01/17 06:20 08:40 05:35 WBC 2.9 L 4.0 D RBC 3.45 L 3.37 L Hgb 10.1 L D 9.9 L Hct 29.5 L 29.1 L MCV 85.7 86.3 MCH 29.3 29.4 MCHC 34.2 34.0 RDW 13.5 13.4 Plt Count 105 L 106 L MPV 11.0 11.5 H Total Counted 100 Neutrophils % No Result Required. No Result Required. Neutrophils % (Manual) 40 L Band Neuts % (Manual) 1 D Lymphocytes % No Result Required. No Result Required. Lymphocytes % (Manual) 35 Monocytes % (Manual) 22 H* Eosinophils % (Manual) 2 D Platelet Estimate Slt decreased Sodium 140 Potassium 3.9 Chloride 106 Carbon Dioxide 25 Anion Gap 9 BUN 8 D Creatinine 0.8 D Creat Clearance w eGFR > 60 Random Glucose 73 L D Calcium 7.9 L Phosphorus Magnesium Total Bilirubin 0.7 D AST 16 ALT 20 Alkaline Phosphatase 76 Total Protein 6.2 L Albumin 3.3 L 08/01/17 05:35 WBC RBC Hgb Hct MCV MCH MCHC RDW Plt Count MPV Total Counted Neutrophils % Neutrophils % (Manual) Band Neuts % (Manual) Lymphocytes % Lymphocytes % (Manual) Monocytes % (Manual) Eosinophils % (Manual) Platelet Estimate Sodium 140 Potassium 4.1 Chloride 109 H Carbon Dioxide 23 Anion Gap 8 BUN 8 Creatinine 0.9 Creat Clearance w eGFR > 60 Random Glucose 103 D Calcium 7.8 L Phosphorus 3.5 Magnesium 2.0 Total Bilirubin 0.6 AST 14 L ALT 18 Alkaline Phosphatase 68 Total Protein 5.7 L Albumin 2.8 L Active Medications Acetaminophen (Tylenol -) 650 mg PO Q6H PRN PRN Reason: FEVER OR PAIN Heparin Sodium (Porcine) (Heparin -) 5,000 unit SQ TID [facility] Last Admin: 08/01/17 05:59 Dose: 5,000 unit Sodium Chloride (Normal Saline -) 1,000 mls @ 100 mls/hr IV ASDIR [facility] Last Admin: 07/31/17 22:37 Dose: 100 mls/hr Ketorolac Tromethamine (Toradol Injection -) 30 mg IVPUSH Q8H-IV PRN PRN Reason: PAIN Stop: 08/05/17 12:27 Morphine Sulfate (Morphine Sulfate) 2 mg IVPUSH Q4H PRN PRN Reason: PAIN Last Admin: 07/31/17 15:35 Dose: 2 mg Oxycodone HCl (Roxicodone -) 5 mg PO Q6H PRN PRN Reason: PAIN LEVEL 1-5 Last Admin: 08/01/17 02:10 Dose: 5 mg Oxycodone HCl (Roxicodone -) 10 mg PO Q6H PRN PRN Reason: PAIN LEVEL 6-10 ASSESSMENT/PLAN:
--- NOTE | 2017-08-01 09:03 | PN ---
Progress Note (short form) - Note Progress Note: Attending Surgeon POD #1 s/p lap appendectomy Tolerated diet and voided; minimal right shoulder pain; ambulating VSS AF abdomen-soft; port site dressings c/d/i; o/w negative WBC-wnl IMP: doing well PLAN: d/c to office f/u next week. Cesar Veloz MD FACS
--- NOTE | 2017-08-01 11:15 | PN ---
Progress Note, Physician Chief Complaint: Post anesthesia note, s/p lap appendectomy History of Present Illness: post op day one - Current Medication List Current Medications: Active Medications Acetaminophen (Tylenol -) 650 mg PO Q6H PRN PRN Reason: FEVER OR PAIN Heparin Sodium (Porcine) (Heparin -) 5,000 unit SQ TID [facility] Last Admin: 08/01/17 05:59 Dose: 5,000 unit Sodium Chloride (Normal Saline -) 1,000 mls @ 100 mls/hr IV ASDIR [facility] Last Admin: 07/31/17 22:37 Dose: 100 mls/hr Ketorolac Tromethamine (Toradol Injection -) 30 mg IVPUSH Q8H-IV PRN PRN Reason: PAIN Stop: 08/05/17 12:27 Morphine Sulfate (Morphine Sulfate) 2 mg IVPUSH Q4H PRN PRN Reason: PAIN Last Admin: 07/31/17 15:35 Dose: 2 mg Oxycodone HCl (Roxicodone -) 5 mg PO Q6H PRN PRN Reason: PAIN LEVEL 1-5 Last Admin: 08/01/17 02:10 Dose: 5 mg Oxycodone HCl (Roxicodone -) 10 mg PO Q6H PRN PRN Reason: PAIN LEVEL 6-10 - Objective Vital Signs: Vital Signs Temperature 97.6 F 08/01/17 05:00 Pulse Rate 56 L 08/01/17 05:00 Respiratory Rate 20 08/01/17 05:00 Blood Pressure 96/48 08/01/17 05:00 O2 Sat by Pulse Oximetry (%) 98 07/31/17 21:00 Constitutional: Yes: Well Nourished Cardiovascular: Yes: WNL Respiratory: Yes: WNL Gastrointestinal: Yes: WNL Labs: CBC, BMP 08/01/17 05:35 08/01/17 05:35 INR, PTT INR 1.03 (0.82-1.09) 07/30/17 20:30 Assessment/Plan no anesthetic complications, no nausea or vomiting, able eat, pain controlled, dept of anesthesia will sign off care at this time.
--- NOTE | 2017-08-01 13:39 | PN ---
Teaching Attending Note Name of Resident: Alaina Knox ATTENDING PHYSICIAN STATEMENT Time of evaluation: 10:00 AM I saw and evaluated the patient. I reviewed the resident's note and discussed the case with the resident. I agree with the resident's findings and plan as documented. SUBJECTIVE: patient seen and examined, denies any abdominal pain, nausea, or vomiting. Passing gas, had a BM, tolerating diet well. No dizziness, fevers or chills. OBJECTIVE: Vital Signs Period Temp Pulse Resp BP Sys/Colon Pulse Ox Last 24 Hr 97.6 F-98.4 F 55-77 16-20 84-99/45-57 98-98 Intake & Output 07/29/17 07/30/17 07/31/17 08/01/17 23:59 23:59 23:59 23:59 Intake Total 3980 1000 Output Total 10 Balance 3970 1000 Weight 170 lb 3.2 oz 161 lb 1.6 oz General: sitting at edge of bed in no acute distress CVS S1S2 regular Chest CTAB, no rales or wheezing abdomen soft, tapes over laparoscopic sites with no erythema/swelling or bleed, mild tenderness around laparoscopic sites but no RLQ tenderness noted, no voluntary or involuntary guarding or rigidity, positive bowel sounds Current Medications Acetaminophen (Tylenol -) 650 mg PO Q6H PRN PRN Reason: FEVER OR PAIN Heparin Sodium (Porcine) (Heparin -) 5,000 unit SQ TID [facility] Last Admin: 08/01/17 05:59 Dose: 5,000 unit Sodium Chloride (Normal Saline -) 1,000 mls @ 100 mls/hr IV ASDIR [facility] Last Admin: 07/31/17 22:37 Dose: 100 mls/hr Ketorolac Tromethamine (Toradol Injection -) 30 mg IVPUSH Q8H-IV PRN PRN Reason: PAIN Stop: 08/05/17 12:27 Morphine Sulfate (Morphine Sulfate) 2 mg IVPUSH Q4H PRN PRN Reason: PAIN Last Admin: 07/31/17 15:35 Dose: 2 mg Oxycodone HCl (Roxicodone -) 5 mg PO Q6H PRN PRN Reason: PAIN LEVEL 1-5 Last Admin: 08/01/17 02:10 Dose: 5 mg Oxycodone HCl (Roxicodone -) 10 mg PO Q6H PRN PRN Reason: PAIN LEVEL 6-10 Laboratory Results - last 24 hr 08/01/17 08/01/17 05:35 05:35 WBC 4.0 D RBC 3.37 L Hgb 9.9 L Hct 29.1 L MCV 86.3 MCH 29.4 MCHC 34.0 RDW 13.4 Plt Count 106 L MPV 11.5 H Neutrophils % No Result Required. Lymphocytes % No Result Required. Sodium 140 Potassium 4.1 Chloride 109 H Carbon Dioxide 23 Anion Gap 8 BUN 8 Creatinine 0.9 Creat Clearance w eGFR > 60 Random Glucose 103 D Calcium 7.8 L Phosphorus 3.5 Magnesium 2.0 Total Bilirubin 0.6 AST 14 L ALT 18 Alkaline Phosphatase 68 Total Protein 5.7 L Albumin 2.8 L ASSESSMENT AND PLAN: Doing well, asymptomatic, tolerating diet well. Labs consistent with hemodilution, outpatient CBC monitoring in 1 week. BP improved, mentating well and asymptomatic, suspect low baseline. Surgery input noted. d/c home today with outpatient surgery follow up and CBC In 1 week. Plan discussed with patient in detail, all questions answered.
[2017-08-01 13:58] VITALS: BP 90/57; PULSE 58; TEMP 98.2
--- NOTE | 2017-08-01 14:16 | OP ---
DATE OF OPERATION: 07/31/2017 PREOPERATIVE DIAGNOSIS: Acute appendicitis. POSTOPERATIVE DIAGNOSIS: Acute appendicitis. PROCEDURE: Laparoscopic appendectomy. SURGEON: Cesar Veloz MD MERINGUER: Cinthia Quiroga PA-C ANESTHESIA: General. OPERATIVE FINDINGS: There was acute suppurative retrocecal appendicitis. The rest of the findings were unremarkable. DESCRIPTION OF PROCEDURE: The patient was placed on the operating room in supine position. After the induction of general anesthesia, the patient's abdomen was prepped with ChloraPrep and draped in sterile fashion. A time-out was taken and pneumoperitoneum established above the umbilicus using the Veress needle with an intra-abdominal pressure of 15 mmHg. A 5-mm port was placed and laparoscopy carried out. An additional 12-mm suprapubic port and a left lower quadrant 5-mm port were placed. The patient was placed head down and turned to the left and the appendix identified. It was bluntly mobilized from the retrocecal area and with the aid of LigaSure device to lyse adhesions between the lateral abdominal wall and retrocecal position. Once brought completely into the field, the mesoappendix was serially divided using the LigaSure device. A 45-mm Endo SIMONE blue load stapler was placed across the base of the appendix and fired. The appendix was then placed in a specimen retrieval bag and brought out through the suprapubic port. Pneumoperitoneum was reestablished without evidence of bleeding from the suture line or any collections in the pelvis. All ports were then removed under laparoscopic vision without evidence of bleeding from the port sites. The suprapubic device was closed with a single [id number] 0 Vicryl suture. All port sites were infiltrated with 0.5% Marcaine and the skin edges were reapproximated with 4-0 Monocryl in subcuticular continuous fashion. Steri-Strips and Band-Aid dressings were placed and the procedure terminated at this point. The patient aroused from general anesthesia and transferred to the post anesthesia care unit in stable condition awake and alert. ESTIMATED BLOOD LOSS: 15 mL. REPLACEMENTS: Crystalloid. DRAINS: None. SPECIMEN: Appendix to pathology. I, Cesar Veloz, was physically present in the operating room from the time the patient was placed on the operating room table until he was transferred to the post anesthesia care unit in 5to1. MD CEHT [id number] MTDD
--- NOTE | 2017-08-01 14:30 | DS ---
Physical Exam: SUBJECTIVE: Patient seen and examined. No complaints this AM. Denies fever, chills, nausea, vomiting. No abdominal pain at rest, some discomfort when going to restroom. Tolerated diet well. 1xBM and voiding well. OBJECTIVE: Vital Signs Period Temp Pulse Resp BP Sys/Colon Pulse Ox Last 24 Hr 97.6 F-98.4 F 56-77 16-20 90-99/45-57 98 PHYSICAL EXAM GENERAL: aaox3, nad LUNGS: CTAB, no wheezes, rhonchi or rales HEART: rrr, normal s1/s2. No murmur, rub or gallop appreciated. ABDOMEN: Soft, non-distended, +BS, incisional tenderness over laparoscopic sites ; bandages clean, dry, intact w/o erythema or induration. LOWER EXTREMITIES: 2+ pulses, wwp, b/l venous stasis LABS Laboratory Results - last 24 hr 08/01/17 08/01/17 05:35 05:35 WBC 4.0 D RBC 3.37 L Hgb 9.9 L Hct 29.1 L MCV 86.3 MCH 29.4 MCHC 34.0 RDW 13.4 Plt Count 106 L MPV 11.5 H Neutrophils % No Result Required. Lymphocytes % No Result Required. Sodium 140 Potassium 4.1 Chloride 109 H Carbon Dioxide 23 Anion Gap 8 BUN 8 Creatinine 0.9 Creat Clearance w eGFR > 60 Random Glucose 103 D Calcium 7.8 L Phosphorus 3.5 Magnesium 2.0 Total Bilirubin 0.6 AST 14 L ALT 18 Alkaline Phosphatase 68 Total Protein 5.7 L Albumin 2.8 L Microbiology 07/31/17 04:05 Blood - Peripheral Venous Blood Culture - Preliminary NO GROWTH OBTAINED AFTER 24 HOURS, INCUBATION TO CONTINUE FOR 4 DAYS. 07/31/17 03:50 Blood - Peripheral Venous Blood Culture - Preliminary NO GROWTH OBTAINED AFTER 24 HOURS, INCUBATION TO CONTINUE FOR 4 DAYS. IMAGING: Right lower quadrant pain. Rule out appendicitis CT scan of the abdomen and pelvis following oral and intravenous contrast. Coronal and sagittal reformatted images were obtained 100 cc of Omnipaque 350 was intravenously injected Comparison: None available Visualized lung base appears unremarkable and the heart is within normal limits in size. Evaluation of the liver, spleen, pancreas, gallbladder, both adrenal glands and both kidneys appear unremarkable. Partially distended stomach without gross wall thickening. There is no evidence of small bowel obstruction. Normal-appearing terminal ileum The appendix measures 9.5 mm in diameter with thickening and enhancement of its wall and stranding of the surrounding fat as well as a trace of free fluid consistent with acute appendicitis. There is also minimal free fluid in the lower pelvis. No extraluminal air or abscess formation are identified. Normal stool burden in the colon without wall thickening. Moderately distended urinary bladder without wall thickening. Normal size prostate gland. Perirectal and pericecal fat are clear. Impression: Findings consistent with acute appendicitis without evidence of extraluminal air or abscess formation. [facility]. Reported By: Breanne Johnson MD 07/31/17 0949 HPI: Date of Admission:07/31/17 27yo man no significant PMHX who presented to the ED with 1 day history of RLQ. 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 Initially thought it was indigestion or muscle strain and tried otc pain meds with minimal relief. Describes 8/10 constant stabbing non-radiating RLQ. No alleviating factors. Aggravated by movement and palpation. No associated fever, chills, nausea or vomiting. No recent illness. Denies CP, MIKE,SOB, palpitations, N/V. HOSPITAL COURSE: Patient was admitted for acute appendicitis, s/p laparoscopic appendectomy on without complications (EBL 10cc, Volume resuscitation 600cc). Perioperatively he received Levoquin and Flagyl x 24h. Post-operatively, IVFs were continued for low BP (80's/50's, although suspect low baseline). His Hemoglobin decreased mildly (11.7 -> 10.1 -> 9.9), which suspect is dilutional. His diet was advanced to Clears -> Solids this morning, which he tolerated well. Date of Discharge: 08/01/17 Minutes to complete discharge: 45 Discharge Summary Reason For Visit: ACUTE APPENDICITIS Current Active Problems Acute appendicitis (Acute) DVT prophylaxis (Acute) Condition: Good - Instructions Diet, Activity, Other Instructions: Dr. Veloz Discharge Instructions Dear MARIAM MAHER, Post Operative Instructions Physical activity Resume your normal everyday activity as tolerated no heavy lifting or exercise until seen by your surgeon. You may walk unlimited amounts of and climb stairs. You may resume driving the car when you feel safe and comfortable behind the wheel. Wound care If you have a bandage, leave it on, and keep dry for 48 - 72 hours. After that time discard the outer bandage. If there are tapes on the skin under the outer bandage, leave them in place. They will peel off in the next 7 to 10 days. Do Not peel them off. You may shower 2 days after surgery. If there are tapes present on the skin, they can get wet. Diet There are no dietary restrictions. Eat healthy, high-fiber foods. Drink 6 to 8 glasses of liquid each day. This will assist in keeping your bowels are regular. Pain management You may take Tylenol or acetaminophen or Ibuprofen (for example, Motrin, Advil etc.) Any pain prescription medication ordered should be taken as prescribed for moderate to severe pain. Call Dr. Veloz for any of the following: Severe pain not relieved by medication Fever of 101 or higher Excessive bleeding or drainage on dressing Inability to urinate Follow-ups: Call Dr. Veloz's office at [phone] for a post operative appointment in 7 - 10 days. Please follow-up with Dr. Hines (primary care physician) within 1 week for blood work (CBC). Referrals: Papito Hines MD [Staff Physician] - Cesar Veloz MD [Staff Physician] - Disposition: HOME - Home Medications Comprehensive Discharge Medication List: Ambulatory Orders NK [No Known Home Medication] 07/30/17 This patient is new to me today: Yes Date on this admission: 08/01/17 Emergency Visit: No Critical Care patient: No - Discharge Referral Referred to [facility] No
--- NOTE | 2017-08-04 16:11 | PATH ---
Surgical Pathology Report Patient Name: MARIAM MAHER Med. Rec. #: [id number] /Age/Gender: 1990 (Age: 27) / M Account: [id number] Location: [facility] MED/SURG Taken: 07/31/2017 Received: 08/01/2017 Reported: 08/04/2017 Physicians: MD Charles Gillespie M.D. Specimen(s) Received APPENDIX Clinical History Acute appendicitis Final Diagnosis APPENDIX, APPENDECTOMY: ACUTE APPENDICITIS AND PERIAPPENDICITIS. Electronically Signed Jaleesa Guthrie M.D. Gross Description Received in formalin, labeled "appendix," is a 5 cm. in length vermiform appendix with a stapled margin of resection and abundant attached fat. The serosa is benitez-peralta with focal adhesions. Sectioning reveals an unremarkable lumen. The wall of the appendix averages 0.1 cm. in thickness. [employer] [employer] [facility] sections are submitted in one cassette. 08/02/2017 saudi08/02/2017
== END 2017-08-01 15:03 | disposition home or self-care (01) | DRG 225 ==
LOC: JERFT 18:49 → JERBED 07-31 02:31 → UNDOADMIN 07-31 02:41 → JERBED 07-31 02:41 → J7W 07-31 03:06 → JERBED 07-31 03:06
PROVIDERS: ADMIT Internal Medicine; ATTEND Hospitalist
PROC: 0DTJ4ZZ Resection of Appendix, Percutaneous Endoscopic Approach (ICD-10-PCS; principal; 2017-07-31 10:00)
DX: K35.80 Unspecified acute appendicitis (principal)
CPT/HCPCS: 36415; 74177-TC; 80053; 81003; 83735; 84100; 85025; 85610; 86850; 86900; 86901; 87040; 88304-TC; 94760; 99285-25; J1644